=== PATIENT | female | born 1965 | race Hispanic/Latino ===

== ENCOUNTER → 2021-09-12 | Outpatient (CLI) | payer OTHER ==
[~2021-09-12] MED LIST: GADOBENATE DIMEGLUMINE 1 ML IV ONE
[2021-09-12 10:37] LABS: CREATININE, SERUM 0.79 mg/dL (0.57-1.11)
== END ==
LOC: MRI 09:33
PROVIDERS: ATTEND Otolaryngology
DX: H91.8X2 Other specified hearing loss, left ear (principal)
CPT/HCPCS: 36415; 70553; 82565; 84520; A9577